=== PATIENT | female | born 1950 ===

== ENCOUNTER 2016-11-02 20:34 | Emergency (ER) | payer MEDICAID ==
[2016-11-02 21:15] VITALS: BP 120/63; PULSE 71; RESP 20; TEMP 98.4; O2SAT 99
[2016-11-02] MEDS ORDERED: DiphenhydrAMINE 50 mg/ml Inj IM STA (22:29)
[2016-11-02] MEDS ORDERED: DiphenhydrAMINE 50 mg/ml Inj ONE (22:34)
--- NOTE | 2016-11-02 22:37 | C.PDOC ---
History Of Present Illness A 66 y/o female c/o pruritic rash to face and neck since last night after taking a shower. Pt denies any known allergen, SOB, fever, chills, sick contact , nausea, vomiting, or any other complaints. Time Seen by Provider: 11/02/16 22:10 Chief Complaint (Nursing): Abnormal Skin Integrity History Per: Patient History/Exam Limitations: no limitations Onset/Duration Of Symptoms: Days Current Symptoms Are (Timing): Still Present Location Of Injury: Anterior: Face (Rash), Neck (Rash) Quality Of Symptoms: Itching Severity: Mild Recent travel outside of the [place]: No Additional History Per: Patient Past Medical History Reviewed: Historical Data, Nursing Documentation, Vital Signs Vital Signs: Last Vital Signs Temp 98.4 F 11/02/16 21:11 Pulse 71 11/02/16 21:11 Resp 20 11/02/16 23:27 BP 120/63 11/02/16 21:11 Pulse Ox 99 11/02/16 22:38 - Medical History PMH: Seizures Family History: States: Unknown Family Hx - Social History Hx Alcohol Use: No Hx Substance Use: No - Immunization History Hx Tetanus Toxoid Vaccination: No Hx Influenza Vaccination: No Hx Pneumococcal Vaccination: No Review Of Systems Constitutional: Negative for: Fever, Chills Gastrointestinal: Negative for: Nausea, Vomiting Skin: Positive for: Rash (Face and neck) Physical Exam - Physical Exam Appears: Non-toxic, No Acute Distress Skin: Warm, Dry, Rash (Urticaria to the right face, left mandibular area, and neck) Head: Atraumatic, Normacephalic Eye(s): bilateral: Normal Inspection Oral Mucosa: Moist Tongue: Normal Appearing, No Swelling Lips: Normal Appearing, No Swelling Throat: Normal, No Exudate Cardiovascular: Rhythm Regular, No Murmur Respiratory: Normal Breath Sounds, No Accessory Muscle Use, No Wheezing Neurological/Psych: Oriented x3, Normal Speech, Normal Cognition, Normal Sensation, Other (No focal deficit) ED Course And Treatment O2 Sat by Pulse Oximetry: 99 (RA) Pulse Ox Interpretation: Normal Progress Note: Impression: 66 y/o female c/o pruritic zay to the face and neck since last night. Plans: benadryl, predniSONE, reassess. Pt is improving with the rash and is in no acute distress. Pt was advised to follow up with PMD for furthur evaluation. Disposition Counseled Patient/Family Regarding: Diagnosis, Need For Followup, Rx Given - Disposition Disposition: HOME/ ROUTINE Disposition Time: 22:35 Condition: STABLE Additional Instructions: take meds prescribed Follwo up with PMD Return to ER if swelling of mouth, tongue or difficulty breathing Prescriptions: Cetirizine HCl [Zyrtec] 10 mg PO DAILY #20 capsule predniSONE [Prednisone] 40 mg PO DAILY #8 tab Instructions: Urticaria (ED) Print Language: IRISH - Clinical Impression Clinical Impression: Allergic urticaria - Scribe Statement The provider has reviewed the documentation as recorded by the Scribe Asaf edwards All medical record entries made by the Rosaliaibvasiliy were at my direction and personally dictated by me. I have reviewed the chart and agree that the record accurately reflects my personal performance of the history, physical exam, medical decision making, and the department course for this patient. I have also personally directed, reviewed, and agree with the discharge instructions and disposition.
== END 2016-11-02 23:27 | disposition home or self-care (01) ==
LOC: C.ER 20:34
DX: L50.0 Allergic urticaria (principal)
CPT/HCPCS: 96372; 99283; J1200

== ENCOUNTER 2018-05-31 16:43 | Emergency (ER) | payer MEDICARE, MEDICAID ==
[2018-05-31 17:21] VITALS: RESP 18
[2018-05-31 18:30] LABS: BASO % 0.7 % (0.0-2.0); EOS # 0.4 K/uL (0.0-0.7); EOS % 6.3 % (0.0-4.0); HEMOGLOBIN 12.7 g/dL (11.0-16.0); LYMPH # 1.9 K/uL (1.0-4.3); LYMPH % 28.6 % (20.0-40.0); MEAN CORPUSCULAR HEMOGLOBIN 31.6 pg (27.0-31.0); MEAN CORPUSCULAR HGB CONC 33.2 g/dL (33.0-37.0); MEAN PLATELET VOLUME 8.9 fL (7.2-11.7); MONO # 0.5 K/uL (0.0-0.8); MONO % 7.1 % (0.0-10.0); NEUT # 3.8 K/uL (1.8-7.0); NEUT % 57.3 % (50.0-75.0); RBC 4.04 Mil/uL (3.80-5.20); RED CELL DISTRIBUTION WIDTH 13.4 % (11.5-14.5); WHITE BLOOD COUNT 6.6 K/uL (4.8-10.8)
[2018-05-31] MEDS ORDERED: levETIRAcetam 500 MG in Sodium Chloride 0.9% 100 ML IVPB STA (18:30)
[2018-05-31 18:43] LABS: ALB/GLOB RATIO 1.6 (1.0-2.1); ALBUMIN 4.1 g/dL (3.5-5.0); ALT/SGPT 23 U/L (9-52); AST/SGOT 22 U/L (14-36); BLOOD UREA NITROGEN 15 mg/dL (7-17); GFR NON-AFRICAN AMERICAN > 60
--- NOTE | 2018-05-31 20:52 | C.PDOC ---
Chief Complaint (Nursing): Seizure Past Medical History Vital Signs: Last Vital Signs Temp 99.4 F 05/31/18 17:16 Pulse 74 05/31/18 19:24 Resp 18 05/31/18 17:16 BP 99/29 L 05/31/18 19:24 Pulse Ox 96 05/31/18 19:24 - Medical History PMH: Depression, Seizures Surgical History: Appendectomy Family History: States: Unknown Family Hx - Social History Hx Alcohol Use: No Hx Substance Use: No - Immunization History Hx Tetanus Toxoid Vaccination: No Hx Influenza Vaccination: No Hx Pneumococcal Vaccination: No ED Course And Treatment - Laboratory Results Result Diagrams: 05/31/18 18:27 05/31/18 18:27 Lab Results: Total Bilirubin 0.4 mg/dL (0.2-1.3) 05/31/18 18:27 AST 22 U/L (14-36) 05/31/18 18:27 ALT 23 U/L (9-52) 05/31/18 18:27 Alkaline Phosphatase 71 U/L (38-126) 05/31/18 18:27 Total Protein 6.8 g/dL (6.3-8.3) 05/31/18 18:27 Albumin 4.1 g/dL (3.5-5.0) 05/31/18 18:27 Globulin 2.6 gm/dL (2.2-3.9) 05/31/18 18:27 Albumin/Globulin Ratio 1.6 (1.0-2.1) 05/31/18 18:27 O2 Sat by Pulse Oximetry: 96 Disposition - Disposition Referrals: Jayson Crawley MD [Staff Provider] - Disposition: HOME/ ROUTINE Additional Instructions: LESTER HACKETT, thank you for letting us take care of you today. The emergency medical care you received today was directed at your acute symptoms. If you were prescribed any medication, please fill it and take as directed. It may take several days for your symptoms to resolve. Return to the Emergency Department if your symptoms worsen, do not improve, or if you have any other problems. Please contact your doctor or call one of the physicians/clinics you have been referred to that are listed on the Patient Visit Information form that is included in your discharge packet. Bring any paperwork you were given at discharge with you along with any medications you are taking to your follow up visit. Our treatment cannot replace ongoing medical care by a primary care provider outside of the emergency department. Thank you for allowing the [facility] team to be part of your care today. Follow up with the ENT doctor in 1-2 days for re-evaluation of you nasal and facial fractures. Prescriptions: Amoxicillin/Clavulanate [Augmentin 875 MG-125 MG] 1 tab PO BID #28 tab Ibuprofen [Motrin] 600 mg PO Q6 PRN #20 tab PRN Reason: Pain, Moderate (4-7) Oxymetazoline 0.05% [Oxymetazoline HCl 30 Ml] 1 ml NS BID #1 bottle Instructions: Nose Fracture (DC) Forms: [employer] (Malay)
--- NOTE | 2018-05-31 20:55 | C.PDOC ---
History Of Present Illness 67 y/o female, with history of epilepsy and compliant on keppra, comes in stating she had a seizure while she was in the bathroom and hit her face on an object. Patient did not bite her tongue. Seizure activity was witnessed by sherrell rosenbaum. Chief Complaint (Nursing): Seizure History Per: Patient History/Exam Limitations: no limitations Past Medical History Reviewed: Historical Data, Nursing Documentation, Vital Signs Vital Signs: Last Vital Signs Temp 99.4 F 05/31/18 17:16 Pulse 74 05/31/18 19:24 Resp 18 05/31/18 17:16 BP 99/29 L 05/31/18 19:24 Pulse Ox 96 05/31/18 19:24 - Medical History PMH: Depression, Seizures Surgical History: Appendectomy Family History: States: No Known Family Hx - Social History Hx Alcohol Use: No Hx Substance Use: No - Immunization History Hx Tetanus Toxoid Vaccination: No Hx Influenza Vaccination: No Hx Pneumococcal Vaccination: No Review Of Systems Except As Marked, All Systems Reviewed And Found Negative. Constitutional: Negative for: Fever, Chills Cardiovascular: Negative for: Chest Pain Respiratory: Negative for: Cough, Shortness of Breath Gastrointestinal: Negative for: Abdominal Pain Neurological: Positive for: Seizures Physical Exam - Physical Exam Appears: Non-toxic, No Acute Distress Skin: Warm, Dry, Ecchymosis (under R eye) Head: Atraumatic, Normacephalic Eye(s): bilateral: Normal Inspection, PERRL Oral Mucosa: Moist Neck: Supple Cardiovascular: Rhythm Regular, No Murmur Respiratory: Normal Breath Sounds, No Rales, No Rhonchi, No Wheezing Gastrointestinal/Abdominal: Soft, No Tenderness Extremity: Bilateral: Atraumatic, Normal Color And Temperature, Normal ROM Neurological/Psych: Oriented x3, Normal Speech ED Course And Treatment - Laboratory Results Result Diagrams: 05/31/18 18:27 05/31/18 18:27 Lab Results: Total Bilirubin 0.4 mg/dL (0.2-1.3) 05/31/18 18: AST 22 U/L (14-36) 05/31/18 18: ALT 23 U/L (9-52) 05/31/18 18: Alkaline Phosphatase 71 U/L (38-126) 05/31/18 18: Total Protein 6.8 g/dL (6.3-8.3) 05/31/18 18:27 Albumin 4.1 g/dL (3.5-5.0) 05/31/18 18:27 Globulin 2.6 gm/dL (2.2-3.9) 05/31/18 18:27 Albumin/Globulin Ratio 1.6 (1.0-2.1) 05/31/18 18:27 O2 Sat by Pulse Oximetry: 96 (RA) Pulse Ox Interpretation: Normal - CT Scan/US Head CT Other Rad Studies (CT/US): Read By Radiologist, Radiology Report Reviewed CT/US Interpretation: FINDINGS: BRAIN. No acute intraparenchymal hemorrhage. No mass lesion. No CT evidence for acute territorial infarct. No midline shift or extra-axial collections. VENTRICLES: No hydrocephalus. ORBITS: The orbits are unremarkable. SINUSES AND MASTOIDS: Air-fluid level present within the right maxillary sinus. BONES: There appears to be displaced fracture of the right zygomatic arch. SOFT TISSUES: Unremarkable. IMPRESSION: No acute intracranial abnormality. Fracture of the right zygomatic arch suspected as well as air-fluid level right maxillary sinus. Clinical correlation advised. Maxillofacial CT Other Rad Studies (CT/US): Read By Radiologist, Radiology Report Reviewed CT/US Interpretation: FINDINGS: BONES: There is a mildly displaced right zygomatic arch fracture. Minimally displaced nasal bone fracture suspected. Air-fluid level present within the right maxillary sinus. SOFT TISSUES: The soft tissues are unremarkable. SINUSES: The sinuses are clear. ORBITS: The orbits are normal. No retrobulbar hematoma or mass. IMPRESSION: Mildly displaced right zygomatic arch fracture. Minimally displaced nasal bone fractures. Air-fluid level right maxillary sinus. Clinical correlation advised. Progress - Re-Evaluation Re-evaluation Note: Spoke to patient about her facial fracture. Patient is to receive prescriptions and to follow up with ENT doctor in 1-2 days. Medical Decision Making Medical Decision Making: Plan: --Head CT --Orbit CT --Labs --Keppra Disposition - Disposition Referrals: Jayson Crawley MD [Staff Provider] - Disposition: HOME/ ROUTINE Disposition Time: 20:00 Condition: GOOD Additional Instructions: LESTER HACKETT, thank you for letting us take care of you today. The emergency medical care you received today was directed at your acute symptoms. If you were prescribed any medication, please fill it and take as directed. It may take several days for your symptoms to resolve. Return to the Emergency Department if your symptoms worsen, do not improve, or if you have any other problems. Please contact your doctor or call one of the physicians/clinics you have been referred to that are listed on the Patient Visit Information form that is included in your discharge packet. Bring any paperwork you were given at discharge with you along with any medications you are taking to your follow up visit. Our treatment cannot replace ongoing medical care by a primary care provider outside of the emergency department. Thank you for allowing the [facility] team to be part of your care today. Follow up with the ENT doctor in 1-2 days for re-evaluation of you nasal and facial fractures. Prescriptions: Amoxicillin/Clavulanate [Augmentin 875 MG-125 MG] 1 tab PO BID #28 tab Ibuprofen [Motrin] 600 mg PO Q6 PRN #20 tab PRN Reason: Pain, Moderate (4-7) Oxymetazoline 0.05% [Oxymetazoline HCl 30 Ml] 1 ml NS BID #1 bottle Instructions: Nose Fracture (DC) Forms: [employer] (Palauan) - Clinical Impression Clinical Impression: Facial fracture, Seizure - Scribe Statement The provider has reviewed the documentation as recorded by the Andreina Leon Provider Attestation: All medical record entries made by the Andreina were at my direction and personally dictated by me. I have reviewed the chart and agree that the record accurately reflects my personal performance of the history, physical exam, medical decision making, and the department course for this patient. I have also personally directed, reviewed, and agree with the discharge instructions and disposition.
[2018-05-31 21:06] VITALS: BP 115/69; PULSE 75; TEMP 98.9
[2018-06-01 00:03] VITALS: O2SAT 96
--- NOTE | 2018-06-01 06:53 | CT ---
Date of service: 05/31/2018 PROCEDURE: CT HEAD WITHOUT CONTRAST. HISTORY: Seizure. COMPARISON: None available. TECHNIQUE: Axial computed tomography images were obtained through the head/brain without intravenous contrast. Radiation dose: Total exam DLP = 1128.75 mGy-cm. This CT exam was performed using one or more of the following dose reduction techniques: Automated exposure control, adjustment of the mA and/or kV according to patient size, and/or use of iterative reconstruction technique. FINDINGS: HEMORRHAGE: No intracranial hemorrhage. BRAIN: No mass effect or edema. No atrophy or chronic microvascular ischemic changes. Mild cerebellar atrophy. VENTRICLES: Unremarkable. No hydrocephalus. CALVARIUM: Suggestion of a deformity of the right zygomatic arch which is only partially imaged on this study. PARANASAL SINUSES: Air-fluid level in the right maxillary sinus. MASTOID AIR CELLS: Unremarkable as visualized. No inflammatory changes. OTHER FINDINGS: Intracranial arterial calcifications. IMPRESSION: Fracture deformity of the right zygomatic arch which is only partially imaged on this study. No acute intracranial abnormality. Air-fluid level in the right maxillary sinus. Mild cerebellar atrophy. If symptoms persists, consider correlation with MRI. A preliminary report was generated at 7:49 p.m. on 05/31/[address] Hari Sutherland from [facility].
--- NOTE | 2018-06-01 07:04 | CT ---
CT orbits HISTORY: Right eye pain. COMPARISON: None available. TECHNIQUE: Multiple contiguous axial images were performed through the orbits without the use of intravenous contrast. This CT exam was performed using one or more of the following dose reduction techniques: Automated exposure control, adjustment of the mA and/or kV according to patient size, and/or use of iterative reconstruction technique. FINDINGS: Air-fluid level in the right maxillary sinus. Mild mucosal thickening of the ethmoid air cells. Bilateral mastoid air cells are preserved. Transverse oblique fracture deformity through the right zygomatic arch. Question mildly displaced right nasal bone fracture. Clinical correlation. Mild soft tissue swelling in the right periorbital region with soft tissue stranding seen extending along the right zygomatic arch at the fracture site. Visualized orbital globes appear grossly preserved. Degenerative changes in the cervical spine. Rightward nasal septal deviation. Impression: Fracture deformity through the right zygomatic arch. Question mildly displaced right nasal bone fracture. Clinical correlation. Air-fluid level in the right maxillary sinus. Soft tissue swelling overlying the right periorbital region and overlying the right zygomatic arch. A preliminary report was generated at 8:01 p.m. on 05/31/[address] Hari Sutherland from [facility] [employer]
--- NOTE | 2018-06-01 09:06 | RAD ---
Chest x-ray single frontal view HISTORY: Fall. Comparison: None available. Findings: No focal infiltrate or effusion. Heart size within normal limits. Osseous structures are grossly preserved. Degenerative changes in the spine. Surgical clips in the upper abdomen. Impression: No focal infiltrate or effusion. If there is concern for osseous injury, consider correlation with chest CT.
--- NOTE | 2018-06-03 17:22 | CARD ---
APPROVED REPORT Date of service: 05/31/2018 EKG Measurement Heart [id number] [id number] <Conclusion> Normal sinus rhythm Normal ECG
== END 2018-05-31 21:04 | disposition home or self-care (01) ==
LOC: C.ER 16:43
DX: G40.909 Epilepsy, unspecified, not intractable, without status epilepticus (principal); S02.40EA Zygomatic fracture, right side, initial encounter for closed fracture; W22.8XXA Striking against or struck by other objects, initial encounter
CPT/HCPCS: 70450; 70480; 71045; 80053; 82948; 85025; 93005; 96374; 99285; J1953